=== PATIENT | male | born 1975 | race Caucasian/White ===

== ENCOUNTER 2016-09-16 17:25 | Emergency (ER) | payer OTHER ==
[~2016-09-16] VITALS: Wt 79.5 kg
--- NOTE | 2016-09-16 18:38 | RADRPT ---
PROCEDURE: Chest x-ray CLINICAL INDICATION: Palpitations TECHNIQUE: Chest single view COMPARISON: None FINDINGS: The heart is normal in size. The pulmonary vessels are normal in caliber. The lungs are clear. Th e costophrenic angles are sharp. The visualized bony thorax is unremarkable. IMPRESSION: No acute cardiopulmonary disease. RPTAT: HH .Seb Duran MD, Date Time Electronically viewed and signed by .Seb Duran MD, MD on 09/16/2016 18:38 .W/
[2016-09-16 19:08] LABS: ADD SCAN DIFF NO
[2016-09-16 19:10] LABS: BASOPHIL # 0.1 10^3/ul (0.0-0.1); BASOPHILS % 0.9 % (0.0-2.0); EOSINOPHILS # 0.2 10^3/ul (0.0-0.5); EOSINOPHILS % 2.4 % (0.0-7.0); HEMATOCRIT 45.8 % (42.0-52.0); LYMPHOCYTES # 2.1 10^3/ul (0.8-2.9); LYMPHOCYTES % 22.2 % (15.0-51.0); MEAN CORPUSCULAR HEMOGLOBIN 25.7 pg (29.0-33.0); MEAN CORPUSCULAR HGB CONC 32.8 g/dl (32.0-37.0); MEAN CORPUSCULAR VOLUME 78.6 fl (82.0-101.0); MEAN PLATELET VOLUME 11.3 fl (7.4-10.4); MONOCYTE # 0.7 10^3/ul (0.3-0.9); NEUTROPHIL # 6.5 10^3/ul (1.6-7.5); NEUTROPHILS % 67.3 % (39.0-77.0); PLATELET COUNT 242 10^3/UL (140-415); RED BLOOD COUNT 5.83 10^6/ul (4.70-6.10); RED CELL DISTRIBUTION WIDTH 15.7 % (11.5-14.5); WHITE BLOOD COUNT 9.6 10^3/ul (4.8-10.8)
[2016-09-16 19:37] LABS: ALANINE AMINOTRANSFERASE 33 IU/L (13-69); ALBUMIN 4.6 g/dl (3.3-4.9); ALBUMIN/GLOBULIN RATIO 1.24; ALKALINE PHOSPHATASE 72 IU/L (42-121); ANION GAP 13 (8-16); ASPARTATE AMINO TRANSFERASE 35 IU/L (15-46); BILIRUBIN,INDIRECT 0.3 mg/dl (0-1.1); BILIRUBIN,TOTAL 0.3 mg/dl (0.2-1.3); BLOOD UREA NITROGEN 16 mg/dl (7-20); CALCIUM 9.8 mg/dl (8.4-10.2); CARBON DIOXIDE 26 mmol/L (21-31); CHLORIDE 104 mmol/L (97-110); CREATININE 1.05 mg/dl (0.61-1.24); GLUCOSE 89 mg/dl (70-220); POTASSIUM 4.2 mmol/L (3.5-5.1); SODIUM 139 mmol/L (135-144); TOTAL PROTEIN 8.3 g/dl (6.1-8.1)
[2016-09-16 19:39] LABS: ADD UMIC NO; URINE BILIRUBIN (Dip) NEGATIVE (NEGATIVE); URINE BLOOD (Dip) NEGATIVE (NEGATIVE); URINE COLOR LT. YELLOW (YELLOW); URINE GLUCOSE (Dip) NEGATIVE (NEGATIVE); URINE KETONES (Dip) TRACE (NEGATIVE); URINE LEUKOCYTE ESTERASE (Dip) NEGATIVE (NEGATIVE); URINE NITRITE (Dip) NEGATIVE (NEGATIVE); URINE TOTAL PROTEIN (Dip) NEGATIVE (NEGATIVE); URINE UROBILINOGEN (Dip) 0.2 E.U./dL (0.1-1.0)
[2016-09-16 19:49] LABS: TROPONIN-I < 0.012 ng/ml (0.00-0.12)
[2016-09-16] MEDS ORDERED: LORA-441 PO (20:34)
--- NOTE | 2016-09-16 20:43 | ERD ---
ER Documentation Chief Complaint Date/Time DATE: 09/16/16 TIME: 20:40 Chief Complaint LOSING WEIGHT X 4 MONTHS, NAUSEA, SOB HPI This is a 41-year-old male who presents today with multiple complaints. Over the last 4 months he has had multiple episodes of palpitations, chest pain, shortness of breath and nausea. Patient also states that he has been losing weight over the last 4 months about 8 pounds each month. Patient did change his diet avoiding red and white sugars. Chest pain and shortness of breath is nonexertional. Patient has not traveled anywhere. He denies any recent surgeries. He does not have any fevers chills or night sweats. Patient does state that he has been very stressed because at work. Denies any head trauma, loss of consciousness, numbness or tingling in his extremities, weaknesses of his extremities. ROS 12 point review of systems was done, all negative except per HPI. Medications Home Meds Active Scripts Lorazepam* (Ativan*) 0.5 Mg Tablet, 0.5 MG PO Q8, #10 TAB Prov:GIOVANNY VALENCIA Александр 09/16/16 PMhx/Soc Medical and Surgical Hx: pt denies Medical Hx, pt denies Surgical Hx Hx Alcohol Use: No Hx Substance Use: No Hx Tobacco Use: No Smoking Status: Never smoker Physical Exam Vitals Vital Signs Date Time Temp Pulse Resp B/P Pulse Ox O2 Delivery O2 Flow Rate FiO2 09/16/16 17:28 98.5 58 18 135/93 99 Physical Exam GENERAL: The patient is well developed and appropriate for usual state of health , in no apparent distress. HEENT: Atraumatic. Conjunctivae are pink. Pupils equal, round, and reactive to light. Extraocular muscles are grossly intact. Bilateral tympanic membranes are clear with no evidence of erythema, effusion or dulling of the light reflex. The oropharynx is clear with no erythema or exudates. NECK: C-spine is soft and supple. There is no cervical lymphadenopathy. CHEST: Clear to auscultation bilaterally. There are no rales, wheezes or rhonchi. HEART: Regular rate and rhythm. No murmurs, clicks, rubs or gallops. ABDOMEN: Soft, nontender and nondistended. Good bowel sounds. No rebound or guarding. No gross peritonitis. No gross organomegaly or masses. No Davison sign or McBurney point tenderness. No pulsatile masses. BACK: No midline or flank tenderness. EXTREMITIES: Equal pulses bilaterally. There is no peripheral clubbing, cyanosis or edema. No focal swelling or erythema. Full range of motion. Grossly neurovascularly intact. NEURO: Alert and oriented. Cranial nerves II through XII are intact. Motor strength in all 4 extremities with 5/5 strength. Sensation grossly intact. Normal speech and gait. SKIN: There is no apparent rash or petechia. The skin is warm and dry. Result Diagram: 09/16/16189909/[id number]/161899 Results 24 hrs Laboratory Tests Test 09/16/16 19:00 09/16/16 19:15 White Blood Count 9.610^3/ul Red Blood Count 5.8310^6/ul Hemoglobin 15.0g/dl Hematocrit 45.8% Mean Corpuscular Volume 78.6fl Mean Corpuscular Hemoglobin 25.7pg Mean Corpuscular Hemoglobin Concent 32.8g/dl Red Cell Distribution Width 15.7% Platelet Count 37701^3/UL Mean Platelet Volume 11.3fl Neutrophils % 67.3% Lymphocytes % 22.2% Monocytes % 7.0% Eosinophils % 2.4% Basophils % 0.9% Nucleated Red Blood Cells % 0.0/100WBC Neutrophils # 6.510^3/ul Lymphocytes # 2.110^3/ul Monocytes # 0.710^3/ul Eosinophils # 0.210^3/ul Basophils # 0.110^3/ul Nucleated Red Blood Cells # 0.010^3/ul Sodium Level 139mmol/L Potassium Level 4.2mmol/L Chloride Level 104mmol/L Carbon Dioxide Level 26mmol/L Anion Gap 13 Blood Urea Nitrogen 16mg/dl Creatinine 1.05mg/dl Glucose Level 89mg/dl Calcium Level 9.8mg/dl Total Bilirubin 0.3mg/dl Direct Bilirubin 0.00mg/dl Indirect Bilirubin 0.3mg/dl Aspartate Amino Transf (AST/SGOT) 35IU/L Alanine Aminotransferase (ALT/SGPT) 33IU/L Alkaline Phosphatase 72IU/L Troponin I < 0.012ng/ml Total Protein 8.3g/dl Albumin 4.6g/dl Globulin 3.70g/dl Albumin/Globulin Ratio 1.24 Urine Color LT. YELLOW Urine Clarity CLEAR Urine pH 5.5 Urine Specific [place] 1.025 Urine Ketones TRACE Urine Nitrite NEGATIVE Urine Bilirubin NEGATIVE Urine Urobilinogen 0.2 E.U./dL Urine Leukocyte Esterase NEGATIVE Urine Hemoglobin NEGATIVE Urine Glucose NEGATIVE% Urine Total Protein NEGATIVE Procedures/MDM Differential diagnosis includes but is not limited to; STEMI, dissection, pneumothorax, PE, esophageal rupture, tamponade, pneumonia, pericarditis, GERD, musculoskeletal, endocarditis, anxiety. At this time patient's chest pain and shortness of breath likely anxiety. Suspicion for acute cardiac etiology is low. EKG was taken and read by Dr. Sibleybpm no ST elevation, no T wave inversion. Patient was given a prescription for Ativan, however patient denied prescription. Patient is afebrile and well-appearing. She needs to follow-up with his primary care doctor within 1-2 days return to ER sooner if symptoms worsen. My medical decision making sure with the patient understands and agrees with plan. Departure Diagnosis: Primary Impression: Chest pain Condition: Stable Patient Instructions: Chest Pain, Uncertain Cause Additional Instructions: Call your primary care doctor TOMORROW for an appointment during the next 1-2 days.See the doctor sooner or return here if your condition worsens before your appointment time. GIOVANNY VALENCIA September 16, 2016 20:43
[2016-09-16 20:46] VITALS: BP 126/85; PULSE 77; RESP 18; TEMP 98.3
== END 2016-09-16 20:47 | disposition home or self-care (01) ==
LOC: FTE 17:25
DX: R07.9 Chest pain, unspecified (principal)
CPT/HCPCS: 71010; 80053; 81003; 84484; 85025; 93005; Z7502

== ENCOUNTER 2017-06-12 19:46 | Emergency (ER) | END 2017-06-12 23:19 | disposition home or self-care (01) ==

== ENCOUNTER 2017-10-01 20:42 | Emergency (ER) | END 2017-10-02 02:23 | disposition left against medical advice (07) ==